=== PATIENT | female | born 1985 | race Asian ===

== ENCOUNTER 2022-03-20 03:37 | Inpatient (IN) ==
[2022-03-20] MEDS ORDERED: BETAMETH SOD PHOS/ACETATE IA 6 MG/ML IM STA (04:37)
[2022-03-20] MEDS ORDERED: OXYTOCIN 30 UNITS/500 ML BAG IV PRN ×4 (04:37→22:15)
--- NOTE | 2022-03-20 04:47 | History & Physical Report ---
Date of Service March 20, 2022 Assessment & Plan (1) premature rupture of membranes: (2) Gestational diabetes mellitus (GDM) affecting : Plan: 36 y/o G1 at 36 6/7 wga admitted w/ PPROM VSS Fetus cat 1 PPROM - confirmed by SSE, discussed w/ pt and her . Discussed recommending proceeding with delivery, can see if starts making change on her own as ROM just occurred. Discussed betamethasone given late status, risks vs benefits for and for herself as GDM and she is amenable. Ample time given for questions, answered to apparent satisfaction A1GDM - q4h bg GBS neg epidural prn History of Present Illness Chief Complaint: bleeding Primary Care Provider: Evie Dale PA-C 36 y/o G1 at 36 6/7 wga presents w/ c/o episode of bleeding at 3AM. Woke up and went to bathroom, noted blood in pantiliner and in toilet. Following the bathroom, she continued to have watery discharge leaking. +FM; denies ctx. PNI: A1GDM Depression Past UX ARCHITECT Hx: G1 Q28-30d cycles Denies hx STIs 09/2021 neg cotest Allergies Allergy/AdvReac Type Severity Reaction Status Date / Time No Known Allergies Allergy Verified 03/20/22 03:58 Home Medications Medication Instructions Recorded Confirmed Type sally oil [ANTI-NAUSEA SALLY] PO 09/06/21 03/14/22 History prenat.vits,doreen,[id number] PO 09/06/21 03/14/22 History pyridoxine (vitamin B6) PO 09/06/21 03/14/22 History acetone (urine) test (Ketone Urine #50 ea 02/09/22 03/14/22 Rx Test) blood sugar diagnostic (OneTouch #150 ea 02/09/22 03/14/22 Rx Verio test strips) blood-glucose meter (OneTouch #1 ea 02/09/22 03/14/22 Rx Verio Reflect Meter) lancets 33 gauge (OneTouch Delica #150 ea 02/09/22 03/14/22 Rx Lancets) Patient History Medical History (Updated 03/20/22 @ 04:44 by Kizzy Rosales MD) No pertinent past medical history Surgical History No significant past surgical history Family History (Updated 09/06/21 @ 13:09 by Niki Sheth, RN) Mother Diabetes Pre-Diabetic Denies family history of Ovarian cancer Prostate cancer Breast cancer Colorectal cancer Social History (Updated 09/06/21 @ 13:10 by Niki Sheth, RN) Smoking Status: Never smoker Second Hand Exposure: No; Hx Alcohol Use: No Hx Substance Use: No Preferred Language: [place]ian Communication Ability: Effective Visual Impairment: No Limitations Hearing Ability: Normal Beliefs That Will Affect Care: None marital status: marital status details: Hair Briggs (33) [phone] Current Living Situation: Spouse Current Living Situation Comment: Lives with spouse, no pets current occupational status: employed current occupation: Laundry Washer Feels Safe at Home: Yes Safety Concerns: Feels Safe At This Time Physical Exam Genitourinary: OB Exam Abdomen: + vertex and + estimated weight (6-7) Manual OB Exam: + cervical dilation 2 cm, + cervical effacement 70%, + station - 2 and + amniotic fluid (+nitrazine, pooling, ferning) OB Exam Monitor Tracing: + external FHT monitor used, + external uterine monitor used (irreg ctx) and + category I (135/mod/+accel/-decel) Results & Data ([facility]) Vital Signs (Past 12 Hours) Vital Signs Temp Pulse Resp BP 03/20/22 03:59 98.2 F 93 H 18 104/69 03/20/22 03:54 98.2 F 93 H 18 104/69 Laboratory Results OB Labs: Blood Type O Positive 09/27/21 Antibody Screen NEGATIVE 09/27/21 Hemoglobin 11.8 g/dL (12.0-16.0) L 01/17/22 Hematocrit 34.8 % (37-47) L 01/17/22 Mean Corpuscular Volume 91.2 fL (80-100) 09/27/21 Platelet Count 303 K/uL (130-400) 09/27/21 Rubella IgG Antibody Immune (Immune) 09/27/21 Rapid Plasma Reagin Nonreactive (Nonreactive) 09/27/21 Hepatitis B Surface Antigen Neg (Neg) 09/27/21 HIV (1&2) Ab and P24 Ag, 4th Gener Neg (Neg) 09/27/21 Glucose 1 Hour 50 gm Load 187 mg/dl (70-130) H 01/17/22 Maternal Serum Alpha Fetoprotein 40.9 ng/mL 10/25/21 OB Optional Labs: Chlamydia trachomatis RNA NOT DETECTED (NOT DETECTED) 09/27/21 Neisseria gonorrhoeae RNA NOT DETECTED (NOT DETECTED) 09/27/21 Alpha Fetoprotein Triple Screen SEE NOTE 10/25/21 Labs Reviewed: cf/sma neg--[facility] low risk panorama--[facility] GBS neg Coding Level of Care Code None Diagnoses premature rupture of membranes O42.919 Gestational diabetes mellitus (GDM) affecting O24.419
[2022-03-20 05:00] LABS: Hematocrit (blood only) 34.6 % (37-47); Hemoglobin 11.5 g/dL (12.0-16.0); Mean Corpuscular Hemoglobin 31.5 pg (25-34); Mean Corpuscular Hgb Conc 33.2 g/dL (32-36); Mean Corpuscular Volume 94.8 fL (80-100); Mean Platelet Volume 10.2 fL (7.4-10.4); Platelet Count 228 K/uL (130-400); RDW Standard Deviation 45.3 fL (36.4-46.3); Red Blood Count 3.65 M/uL (4.2-5.4); White Blood Count 7.66 K/uL (4.8-10.8)
--- NOTE | 2022-03-20 09:33 | Labor Progress Brief Note ---
Date of Service March 20, 2022 Subjective Comfortable. FHT Cat 1 [place] occasional Discussed that it has been 6h since PPROM, recommend start pitocin - she is agreeable. Assessment & Plan Admission and Anticipated Discharge Date Admission Date: March 20, 2022 Results & Data ([facility]) Vital Signs (Past 12 Hours) Vital Signs Temp Pulse Resp BP 03/20/22 09:05 36.7 C 03/20/22 07:06 80 109/68 03/20/22 07:05 36.7 C 16 03/20/22 06:20 36.6 C 03/20/22 03:59 36.8 C 93 H 18 104/69 03/20/22 03:54 36.8 C 93 H 18 104/69 Coding Level of Care Code None
[2022-03-20] MEDS: LACTATED RINGER'S 1,000 ML IV PRN ×3 (09:47→15:21)
[2022-03-20] MEDS ORDERED: Nursing to Pharmacy Communication SCH (13:15)
[2022-03-20] MEDS ORDERED: ePHEDrine sulfate 50 MG/ML AMP ONE (14:23)
[2022-03-20] MEDS ORDERED: BUPIVACAINE 0.25% 30 ML VIAL ONE (14:24)
[2022-03-20] MEDS ORDERED: SODIUM CHLORIDE 0.9% INJ 10 ML VIAL ONE (14:24)
[2022-03-20] MEDS ORDERED: fentaNYL citrate 100 MCG/2 ML VIAL ONE (14:24)
[2022-03-20] MEDS ORDERED: fentaNYL 2MCG/ML ROPIVACAINE 1.25MG/ML 100 ML BAG EPI ONE (14:24)
--- NOTE | 2022-03-20 15:23 | Anesthesiology Consultation ---
Date of Service March 20, 2022 Assessment & Plan Chart Review Chart Review: Acceptable Risk for Surgery Consults Requested none History Height/Weight Height: 5 ft 3 in Weight: 71.214 kg Allergies Allergy/AdvReac Type Severity Reaction Status Date / Time No Known Allergies Allergy Verified 03/20/22 03:58 Medications Home Medications Medication Instructions Recorded Confirmed Last Taken sally oil [ANTI-NAUSEA SALLY] PO 09/06/21 03/14/22 Unknown prenat.vits,doreen,[id number] PO 09/06/21 03/14/22 Unknown pyridoxine (vitamin B6) PO 09/06/21 03/14/22 Unknown acetone (urine) test (Ketone Urine #50 ea 02/09/22 03/14/22 Unknown Test) blood sugar diagnostic (OneTouch #150 ea 02/09/22 03/14/22 Unknown Verio test strips) blood-glucose meter (OneTouch #1 ea 02/09/22 03/14/22 Unknown Verio Reflect Meter) lancets 33 gauge (OneTouch Delica #150 ea 02/09/22 03/14/22 Unknown Lancets) Active Medications Generic Name Dose Route Start Last Admin Trade Name Freq PRN Reason Stop Dose Admin Lactated Ringer's 1,000 mls @ 125 mls/hr 03/20/22 04:37 03/20/22 15:21 Lr IV 03/22/22 04:36 999 mls/hr .Q8H PRN Administration L&D Protocol Protocol Oxytocin 30 units in 500 mls @ 11 mls/hr 03/20/22 09:29 03/20/22 13:40 Pitocin IV 03/22/22 09:28 0.66 units/hr .Q24H PRN 11 mls/hr Labor Induction/Augmentation Titration Protocol 0.66 UNITS/HR Past Medical History Medical History (Updated 03/20/22 @ 04:44 by Kizzy Rosales MD) No pertinent past medical history Past Family History Family History (Updated 09/06/21 @ 13:09 by Niki Sheth RN) Mother Diabetes Pre-Diabetic Denies family history of Ovarian cancer Prostate cancer Breast cancer Colorectal cancer Past Surgical History Surgical History No significant past surgical history Social History Smoking Status: Never smoker Hx Alcohol Use: No Hx Substance Use: No substance use type: does not use Physical Exam Vital Signs Last Vital Signs Temp 36.9 C 03/20/22 15:03 Pulse 93 H 03/20/22 15:21 Resp 18 03/20/22 15:03 BP 102/57 L 03/20/22 15:21 Pulse Ox 98 03/20/22 15:20 Testing Laboratory Results 03/20/22 04:49 03/20/22 03/20/22 03/20/22 11:29 07:35 04:31 POC Glucose 100 H 93 91
[2022-03-20] MEDS ORDERED: ePHEDrine sulfate 50 MG/ML AMP IV PRN (15:25)
[2022-03-20] MEDS ORDERED: fentaNYL 2MCG/ML ROPIVACAINE 1.25MG/ML 100 ML BAG EPI PRN (15:25)
[2022-03-20] MEDS ORDERED: NALOXONE HCL 1 MG in SODIUM CHLORIDE 0.9% 1000ML 1,000 ML IV PRN (15:25)
[2022-03-20] MEDS ORDERED: NALBUPHINE HCL INJ 10 MG/ML AMP IV PRN (15:25)
[2022-03-20] MEDS ORDERED: NALOXONE HCL 0.4 MG/1 ML VIAL/CARP IV PRN (15:25)
[2022-03-20] MEDS ORDERED: diphenhydrAMINE 50 MG/ML VIAL IV PRN (15:25)
--- NOTE | 2022-03-20 18:02 | Labor Progress Brief Note ---
Date of Service March 20, 2022 Subjective Comfortable with epidural. FHT Cat 1 [place] Q 2-3 min 5-6/80/-1 Forebag AROM, scant clear fluid. Assessment & Plan Admission and Anticipated Discharge Date Admission Date: March 20, 2022 Results & Data ([facility]) Vital Signs (Past 12 Hours) Vital Signs Temp Pulse Resp BP Pulse Ox 03/20/22 18:00 89 03/20/22 17:55 74 100/59 L 97 03/20/22 17:50 90 97 03/20/22 17:45 87 98 03/20/22 17:40 97 H 88/52 L 98 03/20/22 17:35 101 H 96 03/20/22 17:30 96 H 96 03/20/22 17:25 98 H 106/55 L 95 03/20/22 17:20 88 95 03/20/22 17:15 98 H 18 96 03/20/22 17:10 88 93/52 L 94 03/20/22 17:08 88 94 03/20/22 17:05 97 H 95 03/20/22 17:00 104 H 96 03/20/22 16:55 96 H 97 03/20/22 16:50 36.9 C 89 18 97 03/20/22 16:45 85 18 97 03/20/22 16:43 84 94 03/20/22 16:40 97 H 106/62 96 03/20/22 16:35 103 H 97 03/20/22 16:30 84 16 98 03/20/22 16:25 84 113/71 98 03/20/22 16:20 104 H 97 03/20/22 16:15 88 18 97 03/20/22 16:10 95 H 97 03/20/22 16:05 96 H 110/67 96 03/20/22 16:01 98 H 20 110/67 03/20/22 16:00 88 16 96 03/20/22 15:55 99 H 107/67 96 03/20/22 15:50 109 H 108/66 97 03/20/22 15:45 106 H 20 114/73 98 03/20/22 15:40 95 H 99 03/20/22 15:39 106 H 18 109/62 03/20/22 15:37 108 H 18 102/60 03/20/22 15:35 103 H 104/62 97 03/20/22 15:33 95 H 18 103/61 03/20/22 15:31 111 H 18 105/61 03/20/22 15:30 88 98 03/20/22 15:29 103 H 18 105/61 03/20/22 15:27 98 H 106/60 03/20/22 15:26 16 03/20/22 15:25 100 H 99/57 L 98 03/20/22 15:23 94 H 106/61 03/20/22 15:21 93 H 102/57 L 03/20/22 15:20 102 H 16 98 03/20/22 15:19 98 H 107/64 03/20/22 15:17 97 H 107/65 03/20/22 15:15 94 H 107/64 98 03/20/22 15:13 101 H 113/64 03/20/22 15:11 82 114/64 03/20/22 15:10 85 99 03/20/22 15:09 91 H 117/76 03/20/22 15:07 90 127/59 L 03/20/22 15:05 61 98 03/20/22 15:03 36.9 C 18 03/20/22 15:00 88 99 03/20/22 14:57 81 121/67 03/20/22 14:55 85 99 03/20/22 14:48 86 97 03/20/22 14:43 83 97 03/20/22 14:38 82 97 03/20/22 13:56 86 101/64 03/20/22 13:05 37.1 C 03/20/22 12:59 82 93/52 L 03/20/22 12:56 77 89/51 L 03/20/22 12:05 37.2 C 03/20/22 11:56 90 18 104/54 L 03/20/22 11:40 37.0 C 18 03/20/22 11:01 36.7 C 03/20/22 10:56 91 H 108/70 03/20/22 09:56 96 H 105/55 L 03/20/22 09:05 36.7 C 03/20/22 07:06 80 109/68 03/20/22 07:05 36.7 C 16 03/20/22 06:20 36.6 C Coding Level of Care Code None
[2022-03-20] MEDS ORDERED: oxyCODONE/ACETAMINOPHEN 5mg/325mg TAB PO PRN (22:15)
[2022-03-20] MEDS ORDERED: DIPHTHERIA/TETANUS/PERTUSSIS 0.5 ML SYR/VIAL IM ONE (22:15)
[2022-03-20] MEDS ORDERED: ACETAMINOPHEN 325 MG TAB PO PRN (22:15)
[2022-03-20] MEDS ORDERED: HYDROCORTISONE ACETATE 25 MG SUPP PR PRN (22:15)
[2022-03-20] MEDS ORDERED: BENZOCAINE 20% AER SPR 82.5 GM CAN EXT PRN (22:15)
[2022-03-20] MEDS ORDERED: bisacodyL 10 MG SUPP PR PRN (22:15)
--- NOTE | 2022-03-20 22:15 | Delivery Summary ---
Vaginal Delivery Summary Date of Service March 20, 2022 Vaginal Delivery Summary [facility] Vaginal Delivery Summary: Pre-delivery diagnoses: 36yp @ 36 6/7, PPROM. GDMA1 Post-delivery diagnoses: same Procedure: spontaneous vaginal delivery Surgeon: Neli Shah DO Complications: none Findings: Viable female . Apgars: 8/9. Weight pending, please see nursery records. Estimated blood loss: 300ml Description of delivery: The patient progressed to complete with epidural anesthesia. She then began to push. She spontaneously vaginally delivered a viable from the cephalic presentation. The head delivered in JUSTINA position with compound right arm and nuchal x 1 - the baby delivered quickly through, did not reduce. This was followed by the body immediately. The baby was placed on mother's abdomen and a spontaneous cry was heard. Delayed cord clamping was employed, and the cord was doubly clamped and cut. Cord blood was obtained. The placenta was delivered spontaneously intact with a 3-vessel cord. The uterus and vagina were swept of clots and debris. IV pitocin was given. The uterus became firm. The cervix, vagina, and perineum were inspected and a hemostatic left periurethral laceration was noted - this was not repaired d/t it being hemostatic. Excellent hemostasis was observed. The mother and baby are recovering in stable and good condition in the room. Sponge and instrument counts were correct x 2. Neli Shah DO [facility] Vaginal Delivery Charge Vaginal Delivery Codes: 89899 global code for the antepartum, delivery, and post- Delivery Type Details: [facility]
--- NOTE | 2022-03-20 23:26 | Anesthesia Procedure Note ---
Date of Service March 20, 2022 Anesthesia Post Epidural Note Vital Signs Vital Signs: Temp Pulse Resp BP Pulse Ox 36.5 C 100 H 20 115/70 99 03/20/22 21:09 03/20/22 23:18 03/20/22 22:50 03/20/22 23:18 03/20/22 21:51 Pain Intensity Abdomen: Pain Intensity: 0 Notes Mental Status: alert / awake / arousable Nausea / Vomiting: adequately controlled Pain: adequately controlled Airway Patency, RR, SpO2: stable & adequate BP & HR: stable & adequate Hydration State: stable & adequate Neuraxial Anesthesia: was administered and sensory block is resolving Anesthetic Complications: no major complications apparent and Pt Satisfied with anesthetic care Epidural: Removed without complications and With tip intact
[2022-03-21] MEDS: IBUPROFEN 600 MG TAB PO PRN ×4 (00:55→20:47)
[2022-03-21] MEDS ORDERED: BETAMETH SOD PHOS/ACETATE IA 6 MG/ML IM SCH (04:45)
--- NOTE | 2022-03-21 05:33 | Obstetrical Progress Note ---
Date of Service <Fuad Ellis MD - Last Filed: 03/21/22 07:06> March 21, 2022 Assessment & Plan <Fuad Ellis MD - Last Filed: 03/21/22 07:06> (1) Vaginal delivery: 36 yo , complicated by GDMA1, now PPD1 from at 36wk6d wi th PPROM < 24 hrs- did not require Ancef -Continue routine care -Vitals reviewed- HDS, afebrile -Pain control with ibuprofen, acetaminophen PRN -Hgb 11.4, asymptomatic <Neli Shah DO - Last Filed: 03/21/22 08:13> (1) Vaginal delivery: Subjective <Fuad Ellis MD - Last Filed: 03/21/22 07:06> Ambulation: ambulating normally Voiding: no voiding problems Passing Gas:: Yes Diet Tolerance:: regular diet Lochia:: Small Feeding Type:: breast feeding Current Pain Level(1-10): 0 Pt doing well overall, no acute complaints or distress. Pain well controlled with medication. Some mild stinging on urination, soreness/cramps with . Review of Systems Denies fever/chills. Denies dyspnea, cough. Denies chest pain. Denies breast pain or discharge. Denies headache. Denies back pain. Physical Exam <Fuad Ellis MD - Last Filed: 03/21/22 07:06> General: Alert, oriented, no acute distress Cardiac: Regular rate and rhythm, normal S1, S2. No murmurs appreciated. Respiratory: Clear to auscultation b/l with good air flow entry, symmetric chest rise and fall. No wheezes or crackles. No increased work of breathing or accessory muscle use Abdomen: Soft, nontender, nondistended. Fundus firm and palpable at 2 cm below umbilicus. No guarding or rebound. Skin: No rashes or lesions Extremities: Warm, dry, well-perfused with capillary refill <2s b/l. No lower extremity edema, erythema, swelling or calf tenderness b/l. Results & Data ([facility]) <Fuad Ellis MD - Last Filed: 03/21/22 07:06> Vital Signs (Past 12 Hours) Vital Signs Temp Pulse Pulse Resp BP BP Pulse Ox 03/21/22 04:00 36.4 C L 86 16 103/68 99 03/21/22 01:00 36.5 C 115 H 16 105/71 96 03/21/22 00:03 100 H 111/61 03/20/22 23:50 18 03/20/22 23:48 110 H 110/61 03/20/22 23:33 100 H 111/67 03/20/22 23:20 18 03/20/22 23:18 100 H 115/70 03/20/22 23:03 96 H 117/69 03/20/22 22:50 20 03/20/22 22:48 100 H 124/75 03/20/22 22:35 18 03/20/22 22:33 83 107/60 03/20/22 22:20 18 03/20/22 22:18 69 105/57 L 03/20/22 22:05 20 03/20/22 22:03 86 109/59 L 03/20/22 21:51 95 H 99 03/20/22 21:50 20 03/20/22 21:48 94 H 107/55 L 03/20/22 21:46 94 H 98 03/20/22 21:41 99 H 98 03/20/22 21:36 106 H 99 03/20/22 21:32 105 H 93 03/20/22 21:31 104 H 99 03/20/22 21:30 20 03/20/22 21:26 105 H 90 03/20/22 21:25 100 H 120/61 99 03/20/22 21:20 108 H 99 03/20/22 21:15 94 H 98 03/20/22 21:11 93 H 114/71 03/20/22 21:10 105 H 99 03/20/22 21:09 36.5 C 03/20/22 21:05 95 H 98 03/20/22 21:00 99 H 18 98 03/20/22 20:55 96 H 106/61 98 03/20/22 20:50 94 H 98 03/20/22 20:45 98 H 97 03/20/22 20:40 97 H 109/61 98 03/20/22 20:35 98 H 99 03/20/22 20:30 100 H 16 98 03/20/22 20:26 95 H 99/60 L 03/20/22 20:25 102 H 98 03/20/22 20:20 101 H 98 03/20/22 20:15 98 H 99 03/20/22 20:10 89 98 03/20/22 20:09 94 H 100/57 L 03/20/22 20:05 96 H 99 03/20/22 20:00 90 18 98 03/20/22 19:56 93 H 101/60 03/20/22 19:55 84 99 03/20/22 19:50 91 H 98 03/20/22 19:45 93 H 98 03/20/22 19:40 93 H 98 03/20/22 19:39 90 104/64 03/20/22 19:35 94 H 99 03/20/22 19:30 94 H 18 99 03/20/22 19:25 93 H 99/60 L 99 03/20/22 19:20 94 H 98 03/20/22 19:15 96 H 98 03/20/22 19:11 96 H 99/65 L 03/20/22 19:10 36.7 C 91 H 18 98 03/20/22 19:05 90 98 03/20/22 19:00 88 97 03/20/22 18:55 88 105/65 97 03/20/22 18:50 83 99 03/20/22 18:45 87 18 97 03/20/22 18:40 92 H 105/63 98 03/20/22 18:35 78 98 03/20/22 18:30 82 97 03/20/22 18:26 83 106/66 03/20/22 18:25 80 98 03/20/22 18:20 100 H 98 03/20/22 18:15 93 H 16 98 03/20/22 18:11 80 106/63 03/20/22 18:10 79 97 03/20/22 18:05 92 H 98 03/20/22 18:00 89 16 97 03/20/22 17:55 74 100/59 L 97 03/20/22 17:50 90 97 03/20/22 17:45 87 98 03/20/22 17:40 97 H 88/52 L 98 03/20/22 17:35 101 H 96 <Neli Shah, DO - Last Filed: 03/21/22 08:13> Co-Signing Physician Notes Resident Physician Supervision Note: I interviewed and examined the patient. Discussed with Dr. Ellis and agree with findings and plan as documented in the note. Any exceptions or clarifications are listed here: PPD#1 doing well. Routine care. Documented By: Neli Shah DO Resident Activity Tracking <Fuad Ellis MD - Last Filed: 03/21/22 07:06> Resident Involvement: Resident Care Provided Care Provided: OB Delivery
[2022-03-21 06:52] LABS: Hematocrit (blood only) 33.5 % (37-47); Hemoglobin 11.4 g/dL (12.0-16.0)
[2022-03-21] MEDS: PRENATAL VITAMIN 1 TAB PO SCH (08:28)
[2022-03-21] MEDS: DOCUSATE SODIUM 100 MG CAP PO SCH ×2 (08:28→20:51)
[2022-03-21] MEDS ORDERED: bisacodyL 5 MG TABEC PO SCH (20:00)
[2022-03-22] MEDS ORDERED: COUGH DROP (SUGAR FREE) LOZ 24 LOZ/1 BOX BUCCAL PRN (01:56)
[2022-03-22] MEDS ORDERED: COUGH DROP (SUGAR FREE) LOZ 24 LOZ/1 BOX BUCCAL ONE (01:59)
--- NOTE | 2022-03-22 05:53 | Obstetrical Progress Note ---
Date of Service <Fuad Ellis MD - Last Filed: 03/22/22 07:50> March 22, 2022 Assessment & Plan <Fuad Ellis MD - Last Filed: 03/22/22 07:50> (1) Vaginal delivery: 36 yo , complicated by GDMA1, now PPD2 from at 36wk6d wi th PPROM < 24 hrs- did not require Ancef -Discharge today to home, instructions reviewed with patient -Vitals reviewed- HDS, afebrile -F/u in 6 weeks with OB <Robin Adams MD - Last Filed: 03/23/22 08:26> (1) Vaginal delivery: Subjective <Fuad Ellis MD - Last Filed: 03/22/22 07:50> Ambulation: ambulating normally Voiding: no voiding problems Passing Gas:: Yes Diet Tolerance:: regular diet Lochia:: Small Feeding Type:: breast feeding Current Pain Level(1-10): 0 Pt doing well overall, no acute complaints or distress. Pain well controlled with medication. Would like to go home today and asked for breast pump. Review of Systems Denies fever/chills. Denies dyspnea, cough. Denies chest pain. Denies breast pain or discharge. Denies headache. Denies back pain. Physical Exam <Fuad Ellis MD - Last Filed: 03/22/22 07:50> General: Alert, oriented, no acute distress Cardiac: Regular rate and rhythm, normal S1, S2. No murmurs appreciated. Respiratory: Clear to auscultation b/l with good air flow entry, symmetric chest rise and fall. No wheezes or crackles. No increased work of breathing or accessory muscle use Abdomen: Soft, nontender, nondistended. Fundus firm and palpable at 2 cm below umbilicus. No guarding or rebound. Skin: No rashes or lesions Extremities: Warm, dry, well-perfused with capillary refill <2s b/l. No lower extremity edema, erythema, swelling or calf tenderness b/l. Results & Data ([facility]) <Fuad Ellis MD - Last Filed: 03/22/22 07:50> Vital Signs (Past 12 Hours) Vital Signs Temp Pulse Pulse Resp BP Pulse Ox 03/21/22 23:15 36.6 C 91 H 16 119/78 98 03/21/22 20:45 36.6 C 92 H 18 105/67 97 <Robin Adams MD - Last Filed: 03/23/22 08:26> Co-Signing Physician Notes Patient seen and evaluated with resident and agree with the above findings and p luis eduardo. Doing well. Stable for discharge. Resident Activity Tracking <Fuad Ellis MD - Last Filed: 03/22/22 07:50> Resident Involvement: Resident Care Provided Care Provided: OB Delivery
[2022-03-22] MEDS: PRENATAL VITAMIN 1 TAB PO SCH (08:22)
[2022-03-22] MEDS: DOCUSATE SODIUM 100 MG CAP PO SCH (08:22)
== END 2022-03-22 18:50 | disposition home or self-care (01) | DRG 807 ==
LOC: OPB 03:37 → 4S1 03:38 → 4E2 03-21 00:45